=== PATIENT | female | born 1980 | race African-American/Black ===

== ENCOUNTER 2017-02-03 04:32 | Emergency (ER) | payer OTHER ==
[~2017-02-03] VITALS: Ht 160 cm; Wt 68.0 kg
[2017-02-03 05:30] LABS: PLATELET COUNT 321 K/uL (152-353)
[2017-02-03 05:36] LABS: POTASSIUM 3.3 mmol/L (3.6-5.2); SODIUM 140 mmol/L (136-145)
[2017-02-03 11:07] VITALS: BP 104/67; TEMP 98
== END 2017-02-03 11:10 | disposition home or self-care (01) ==
LOC: ED 04:32
PROVIDERS: Emergency Medicine
DX: R10.9 Unspecified abdominal pain (principal); R82.71 Bacteriuria
CPT/HCPCS: 80053; 81000; 81025; 85027; 96361; 96365; 96374; 99284; J2175; J2405; J2543; L1830